=== PATIENT | female | born 1990 | race African-American/Black ===

== ENCOUNTER 2017-08-29 19:17 | Emergency (ER) | payer SELFPAY ==
[2017-08-29 20:18] LABS: Bilirubin Negative (Negative); Blood, Urine Negative (Negative); Glucose, Urine (Dipstick) Negative (Negative); Ketone, Urine Negative (Negative); Nitrite Negative (Negative); Protein, Urine (Dipstick) Negative (Neg-Trace)
[2017-08-29 20:21] LABS: Hyaline Casts/LPF 0-3 HYALINE CAST LPF (0-3 Hyaline); Squamous Epithelial 0-3 HPF (0-3); WBC/HPF 21-50 HPF (0-3)
[2017-08-29 20:32] LABS: Bacteria/HPF 2+ HPF (None Seen); RBC/HPF 0-3 HPF (0-3); Sperm/HPF Rare HPF (None Seen); Yeast-All Forms None Seen HPF (None Seen)
[2017-08-29] MEDS ORDERED: Ciprofloxacin 500 MG TAB ONE (22:35)
[2017-08-29] MEDS ORDERED: Fluconazole 100 MG TAB PO SCH (22:45)
[2017-08-30] MEDS ORDERED: Ondansetron HCl/PF 4 MG/2 ML Vial ONE (01:34)
== END 2017-08-29 23:00 | disposition home or self-care (01) ==
LOC: ERS 19:17
DX: N76.0 Acute vaginitis (principal); N39.0 Urinary tract infection, site not specified
CPT/HCPCS: 81003; 81015; 81025; 87480; 87491; 87510; 87591; 87660; 99283

== ENCOUNTER 2017-10-21 18:18 | Emergency (ER) | payer SELFPAY | END 2017-10-21 20:34 | disposition home or self-care (01) | LOC: ERS 18:18 | DX: J06.9 Acute upper respiratory infection, unspecified (principal) | CPT/HCPCS: 87081; 87430; 99283 ==

== ENCOUNTER 2017-10-31 12:31 | Emergency (ER) | payer SELFPAY ==
[2017-10-31] MEDS ORDERED: Acetaminophen 500 MG TAB ONE (13:20)
== END 2017-10-31 14:36 | disposition home or self-care (01) ==
LOC: ERS 12:31
DX: J02.9 Acute pharyngitis, unspecified (principal)
CPT/HCPCS: 87081; 87430; 99283

== ENCOUNTER 2017-12-23 19:10 | Emergency (ER) | payer SELFPAY ==
[2017-12-23] MEDS ORDERED: Ibuprofen 200 MG TAB ONE (19:42)
== END 2017-12-23 20:34 | disposition home or self-care (01) ==
LOC: ERS 19:10
DX: J02.9 Acute pharyngitis, unspecified (principal)
CPT/HCPCS: 87081; 87430; 99283